=== PATIENT | male | born 1990 | race American Indian/Alaskan Native ===

== ENCOUNTER 2016-10-13 23:39 | Emergency (ER) | payer OTHER ==
--- NOTE | 2016-10-14 00:46 | XRay Report ---
FINAL REPORT PROCEDURE: XR HAND 3 RT TECHNIQUE: Right hand radiographs, AP and lateral views. CPT 63374 HISTORY: Impact, 3rd digit Rt hand, pain, Send for report COMPARISON: No prior studies are available for comparison. FINDINGS: Fracture (s) and/or Dislocation(s): None . Alignment: Normal . Joint space(s): Normal . Soft tissues: There is soft tissue swelling of the 3rd digit.. Bone mineralization: Normal . Foreign bodies: None . IMPRESSION: There is soft tissue swelling of the 3rd digit. There are no fractures or malalignments..
--- NOTE | 2016-10-14 04:06 | Emergency Department Report ---
HPI - General Chief Complaint: Extremity Injury, Upper Time Seen by Provider: 10/14/16 03:02 - HPI HPI: Patient is a 26-year-old male who presents to ED complaining of right third digit pain times today. Patient states he was at work when a pallet hit his hand patient states right hand third digit pain. Patient describes pain as throbbing in nature and nonradiating, 4-10 intensity. She states pain and minimal swelling area Patient denies fever/chills/nausea/vomiting/loss of sensation/bleeding. ED Past Medical Hx - Past Medical History Previous Medical History?: No - Surgical History Past Surgical History?: No - Social History Smoking Status: Never Smoker Substance Use Type: Alcohol - Medications Home Medications: Home Medications Medication Instructions Recorded Confirmed Last Taken Type Cyclobenzaprine HCl [Flexeril 5 MG 5 mg PO TID #16 tab 10/14/16 Unknown Rx TAB] Ibuprofen [Motrin] 600 mg PO Q8H PRN #30 tablet 10/14/16 Unknown Rx ED Review of Systems ROS: Stated complaint: RIGHT HAND PAIN Other details as noted in HPI Constitutional: denies: chills, fever Eyes: denies: eye pain, eye discharge, vision change ENT: denies: ear pain, throat pain Respiratory: denies: cough, shortness of breath, wheezing Cardiovascular: denies: chest pain, palpitations Endocrine: no symptoms reported Gastrointestinal: denies: abdominal pain, nausea, diarrhea Genitourinary: denies: urgency, dysuria Musculoskeletal: denies: back pain, joint swelling, arthralgia Skin: denies: rash, lesions Neurological: denies: headache, weakness, paresthesias Psychiatric: denies: anxiety, depression Hematological/Lymphatic: denies: easy bleeding, easy bruising Physical Exam - Physical Exam Vital Signs: Vital Signs 10/13/16 23:40 Temperature 98.5 F Pulse Rate 81 Respiratory 18 Rate Blood Pressure 127/73 [Right] O2 Sat by Pulse 98 Oximetry Physical Exam: GENERAL: Alert and oriented x3, no apparent distress, Normal Gait, atraumatic. HEAD: Head is normocephalic and a-traumatic. EYES: Extra ocular muscles are intact. Pupils are equal, round, and reactive to light and accommodation. NECK: Supple. Non edematous, No carotid bruits. No lymphadenopathy or thyromegaly. LUNGS: Symetrical with respiration, No wheezing, no rales or crackles, CTAB. HEART: S1, S2 present, regular rate and rhythm without murmur, no rubs, no gallops. EXTREMITIES/MUSCULOSKELETAL: No cyanosis, clubbing, rash, lesions or edema. Full ROM bilaterally. UE/LE Pulses 2+ bilaterally. LE and UE 5+ strength bilaterally. Right-sided digit slightly swollen. Full range of motion. Pain to palpation of the DIP joint. NEUROLOGIC: No focal Deficit, Cranial nerves II through XII are grossly intact. No loss of sensation, SKIN: Warm and dry, No lesions, No ulceration or induration present. ED Course Vital Signs 10/13/16 23:40 Temperature 98.5 F Pulse Rate 81 Respiratory 18 Rate Blood Pressure 127/73 [Right] O2 Sat by Pulse 98 Oximetry ED Medical Decision Making - Radiology Data Radiology results: report reviewed, image reviewed FINAL REPORT PROCEDURE: XR HAND 3 RT TECHNIQUE: Right hand radiographs, AP and lateral views. CPT 97249 HISTORY: Impact, 3rd digit Rt hand, pain, Send for report COMPARISON: No prior studies are available for comparison. FINDINGS: Fracture (s) and/or Dislocation(s): None . Alignment: Normal . Joint space(s): Normal . Soft tissues: There is soft tissue swelling of the 3rd digit.. Bone mineralization: Normal . Foreign bodies: None . IMPRESSION: There is soft tissue swelling of the 3rd digit. There are no fractures or malalignments.. Transcribed By: CO Dictated By: DENNY RODRIGUEZ MD Electronically Authenticated By: DENNY RODRIGUEZ MD Signed Date/Time: 10/14/16 0042 - Medical Decision Making 26-year-old male presents with finger strain. HAND X-RAY SHOWS: No abnormalities see above Discussed the patient to follow up with primary care physician. Vital signs stable patient is in no acute or respiratory distress. Discussed the patient take medication as described Critical care attestation.: If time is entered above; I have spent that time in minutes in the direct care of this critically ill patient, excluding procedure time. ED Disposition Clinical Impression: Strain of finger of right hand Qualifiers: Encounter type: initial encounter Qualified Code(s): S66.911A - Strain of unspecified muscle, fascia and tendon at wrist and hand level, right hand, initial encounter Disposition: DISCHARGED TO HOME OR SELFCARE Is pt being admited?: No Does the pt Need Aspirin: No Condition: Stable Instructions: Muscle Strain (ED) Prescriptions: Cyclobenzaprine HCl [Flexeril 5 MG TAB] 5 mg PO TID #16 tab Ibuprofen [Motrin] 600 mg PO Q8H PRN #30 tablet PRN Reason: Pain Referrals: PRIMARY CAREMD [Primary Care Provider] - 3-5 Days CHANDA SAVAGE MD [Referring] - 3-[address] SANTANA MD [Referring] - 3-5 Days JUSTIN DODD MD [Referring] - 3-5 Days Forms: Work/School Release Form(ED) Time of Disposition: 04:06
[2016-10-14 04:21] VITALS: BP 128/72
== END 2016-10-14 04:38 | disposition home or self-care (01) ==
LOC: ED 23:39
DX: S66.911A Strain of unspecified muscle, fascia and tendon at wrist and hand level, right hand, initial encounter (principal); W22.8XXA Striking against or struck by other objects, initial encounter; Y93.9 Activity, unspecified; Y92.9 Unspecified place or not applicable; Y99.9 Unspecified external cause status
CPT/HCPCS: 99283